=== PATIENT | male | born 1935 | race Caucasian/White ===

== ENCOUNTER 2018-12-10 15:14 | Emergency (ER) | payer MEDICARE, OTHER ==
[~2018-12-10] VITALS: Ht 180.3 cm; Wt 92.1 kg
[2018-12-10] MEDS ORDERED: SODIUM CHLORIDE 0.9% 1000ML 1,000 ML IV SCH (15:30)
[2018-12-10] MEDS ORDERED: SODIUM CHLORIDE 0.9% 1000ML 1,000 ML ONE (16:03)
--- NOTE | 2018-12-10 16:37 | Diagnostic Imaging Report ---
CT BRAIN WO-HOPD HISTORY: Elevated blood pressure COMPARISON: None. Technique: Noncontrast axial scans were obtained from skull base to the vertex. Coronal and sagittal reconstructions obtained from the axial data. One or more of the following dose reduction techniques were used: Automated exposure control, adjustment of the mA and/or kV according to patient size, and/or utilization of iterative reconstruction technique. DISCUSSION: Scalp/Skull: Unremarkable. Brain sulci: Mildly prominent. Ventricles: Compensatory dilatation. Extra-axial spaces: No masses or fluid collections. Carotid siphon calcifications are present. Parenchyma: Mild bilateral deep white matter hypodensity is likely chronic microvascular ischemic change. Otherwise, no masses, hemorrhage, or large vascular territory acute infarct. Dural sinuses: No abnormal densities. Sellar/Suprasellar region: Intact. Skull base: Intact. Incidental findings: Bilateral ocular lens replacement. IMPRESSION: 1. No acute intracranial abnormalities. 2. Mild supratentorial chronic microvascular ischemic change. Mild generalized cerebral volume loss. Signed by: Dr. Brian Saha M.D. on 12/10/2018 4:33 PM
[2018-12-10] MEDS ORDERED: LOSARTAN POTAS100 MG PO (18:00)
[2018-12-10] MEDS ORDERED: SINGULAIR10 MG (18:00)
[2018-12-10] MEDS ORDERED: TOPROL XL25 MG PO (18:00)
[2018-12-10] MEDS ORDERED: CLONIDINE HCL0.1 MG PO (18:00)
[2018-12-10] MEDS ORDERED: HYDROCHLOROTHIA25 MG (18:00)
[2018-12-10] MEDS ORDERED: OMEPRAZOLE40 MG (18:00)
[2018-12-10] MEDS ORDERED: LEVOTHYROXINE75 MCG PO (18:00)
[2018-12-10] MEDS ORDERED: SIMVASTATIN20 MG PO (18:00)
[2018-12-10 18:07] VITALS: BP 174/88
== END 2018-12-10 18:19 | disposition home or self-care (01) ==
LOC: FSED 15:14
DX: R42 Dizziness and giddiness (principal); G43.909 Migraine, unspecified, not intractable, without status migrainosus; I10 Essential (primary) hypertension
CPT/HCPCS: 70450; 80048; 82553; 83880; 84484; 85025; 99283; J7030